=== PATIENT | female | born 1970 | race Caucasian/White ===

== ENCOUNTER 2017-06-05 00:10 | Emergency (ER) | payer MEDICAID ==
[~2017-06-05] VITALS: Ht 167.6 cm; Wt 84.0 kg
[2017-06-05 00:11] VITALS: BP 130/92
== END 2017-06-05 00:23 | disposition left against medical advice (07) ==
LOC: ED 00:17
DX: H57.10 Ocular pain, unspecified eye (principal); Z53.21 Procedure and treatment not carried out due to patient leaving prior to being seen by health care provider

== ENCOUNTER 2018-12-29 06:51 | Inpatient (IN) | payer MEDICAID, OTHER ==
[2018-12-29] VITALS (14 sets, daily range): BP systolic 105–130; BP diastolic 67–88
[~2018-12-29] VITALS: Ht 167.6 cm; Wt 80.2 kg
[2018-12-29] MEDS ORDERED: SODIUM CHLORIDE FLUSH 10ML SYR IVF ONE (07:00)
--- NOTE | 2018-12-29 07:11 | NUR ---
pt bib remsa in custody, pt has had intermittent vaginal bleeding (one episode lasting 28 days). Pt's H&H was 4 & 16.4 on 12/27.
[2018-12-29 07:34] LABS: INTERNATIONAL NORMALIZED RATIO 0.95 (0.93-1.1); PROTHROMBIN TIME 10.1 Seconds (9.6-11.5)
[2018-12-29 07:36] LABS: ALANINE AMINOTRANSFERASE 11 U/L (12-78); ALBUMIN 3.4 g/dL (3.4-5.0); ANION GAP 6 mmol/L (5-15); CALCIUM 8.5 mg/dL (8.5-10.1); CHLORIDE 107 mmol/L (98-107); CREATININE 0.81 mg/dL (0.55-1.02)
[2018-12-29 07:38] LABS: ALKALINE PHOSPHATASE 107 U/L (45-117); BILIRUBIN,TOTAL 0.3 mg/dL (0.2-1.0); TOTAL PROTEIN 7.3 g/dL (6.4-8.2)
[2018-12-29 07:43] LABS: MEAN CORPUSCULAR HEMOGLOBIN 15.5 pg (27.0-34.8); MEAN CORPUSCULAR VOLUME 54.3 fL (80-100); MEAN PLATELET VOLUME 8.1 fL (7.4-10.4); PLATELET COUNT 282 x10^3/uL (130-400); RED BLOOD COUNT 2.61 x10^6/uL (3.82-5.3); RED CELL DISTRIBUTION WIDTH 21.5 % (9.6-15.2)
[2018-12-29 07:44] LABS: MEAN CORPUSCULAR HGB CONC 28.6 g/dL (32.4-35.8)
--- NOTE | 2018-12-29 07:55 | NUR ---
PT RETURNED FROM US IN NAD, AWAITING TYPE & SCREEN & BLOOD FROM BLOOD BANK
[2018-12-29 08:00] LABS: BASOPHILS # (AUTO) 0.01 x10^3/uL (0-0.1); BASOPHILS % (AUTO) 0 % (0-1); EOSINOPHILS # (AUTO) 0.02 x10^3/uL (0-0.4); EOSINOPHILS % (AUTO) 0 % (1-7); LYMPHOCYTES # (AUTO) 1.03 x10^3/uL (1-3.4); LYMPHOCYTES % (AUTO) 12 % (22-44); MD MORPH REVIEW ONLY; MONOCYTES # (AUTO) 0.51 x10^3/uL (0.2-0.8); MONOCYTES % (AUTO) 6 % (2-9); NEUTROPHILS % (AUTO) 81 % (42-75)
[2018-12-29 08:01] LABS: HYPOCHROMIA 2+
--- NOTE | 2018-12-29 08:04 | NUR ---
BLOOD REQUESTED FROM LAB
[2018-12-29 08:05] LABS: ANISOCYTOSIS 3+; MICROCYTOSIS 3+; POLYCHROMASIA 1+
[2018-12-29 08:06] LABS: <PLATELET ESTIMATE> ADEQUATE; <PLT MORPHOLOGY> NORMAL PLT MORPH; OVALOCYTES 1+
--- NOTE | 2018-12-29 09:28 | NUR ---
transfusion completed w/o complication. awaiting US read for admit order. wctm
[2018-12-29] MEDS: NICOTINE 14MG/24 HR PATCH.TD24 TD SCH (10:30)
[2018-12-29 11:02] LABS: MEAN CORPUSCULAR HEMOGLOBIN 17.2 pg (27.0-34.8); MEAN CORPUSCULAR VOLUME 58.3 fL (80-100); MEAN PLATELET VOLUME 7.9 fL (7.4-10.4); NEUTROPHILS % (AUTO) 80 % (42-75); PLATELET COUNT 244 x10^3/uL (130-400); RED BLOOD COUNT 2.71 x10^6/uL (3.82-5.3); RED CELL DISTRIBUTION WIDTH 27.6 % (9.6-15.2)
[2018-12-29 11:05] LABS: MEAN CORPUSCULAR HGB CONC 29.6 g/dL (32.4-35.8)
--- NOTE | 2018-12-29 11:05 | NUR ---
REPORT CALLED TO SHYAM WALLACE ON TELE, PT TO BE TRANSPORTED VIA STRETCHER BY TECH ACCOMPANIED BY OFFICER TO ADMIT BED UPON ROOM READINESS.
--- NOTE | 2018-12-29 11:38 | NUR ---
PT TO BE TRANSPORTED VIA STRETCHER BY TECH TO ADMIT BED AT THIS TIME.
[2018-12-29 11:40] LABS: MD MORPH REVIEW ONLY
[2018-12-29 11:41] LABS: BASOPHILS # (AUTO) 0.01 x10^3/uL (0-0.1); BASOPHILS % (AUTO) 0 % (0-1); EOSINOPHILS # (AUTO) 0.07 x10^3/uL (0-0.4); EOSINOPHILS % (AUTO) 1 % (1-7); LYMPHOCYTES # (AUTO) 0.95 x10^3/uL (1-3.4); LYMPHOCYTES % (AUTO) 13 % (22-44); MONOCYTES # (AUTO) 0.49 x10^3/uL (0.2-0.8); MONOCYTES % (AUTO) 7 % (2-9); NEUTROPHILS # (AUTO) 6.01 x10^3/uL (1.8-6.8)
[2018-12-29 11:42] LABS: HYPOCHROMIA 2+; MICROCYTOSIS 3+; OVALOCYTES 1+; POLYCHROMASIA 1+
[2018-12-29 11:43] LABS: <PLATELET ESTIMATE> ADEQUATE; <PLT MORPHOLOGY> NORMAL PLT MORPH; ANISOCYTOSIS 3+
[2018-12-29] MEDS: SODIUM CHLORIDE 0.9% 1,000 ML IV SCH ×2 (12:28→22:06)
[2018-12-29] MEDS ORDERED: CITA40TA5 PO (12:30)
[2018-12-29] MEDS ORDERED: PARO10TA56 PO (12:30)
[2018-12-29] MEDS ORDERED: TRAZ50TA66 PO (12:30)
[2018-12-29] MEDS: ACETAMINOPHEN 325 MG TABLET PO PRN (16:44)
[2018-12-29 18:47] LABS: MEAN CORPUSCULAR HEMOGLOBIN 20.4 pg (27.0-34.8); MEAN CORPUSCULAR HGB CONC 31.1 g/dL (32.4-35.8); MEAN CORPUSCULAR VOLUME 65.8 fL (80-100); MEAN PLATELET VOLUME 8.2 fL (7.4-10.4); PLATELET COUNT 234 x10^3/uL (130-400); RED BLOOD COUNT 3.45 x10^6/uL (3.82-5.3); RED CELL DISTRIBUTION WIDTH 33.8 % (9.6-15.2)
[2018-12-29 19:58] LABS: MD NO
[2018-12-29] MEDS ORDERED: TRAZODONE 100MG TABLET PO SCH (21:00)
[2018-12-29] MEDS: FAMOTIDINE 20 MG TABLET PO SCH (22:05)
[2018-12-30] VITALS (9 sets, daily range): BP systolic 109–128; BP diastolic 73–83
[2018-12-30] MEDS: ACETAMINOPHEN 325 MG TABLET PO PRN (05:37)
[2018-12-30 06:01] LABS: MEAN CORPUSCULAR HEMOGLOBIN 22.1 pg (27.0-34.8); MEAN CORPUSCULAR HGB CONC 31.7 g/dL (32.4-35.8); MEAN CORPUSCULAR VOLUME 69.9 fL (80-100); PLATELET COUNT 222 x10^3/uL (130-400); RED BLOOD COUNT 3.88 x10^6/uL (3.82-5.3); RED CELL DISTRIBUTION WIDTH 34.2 % (9.6-15.2)
[2018-12-30 06:03] LABS: ALANINE AMINOTRANSFERASE 13 U/L (12-78); ANION GAP 6 mmol/L (5-15); CALCIUM 8.2 mg/dL (8.5-10.1); CHLORIDE 112 mmol/L (98-107)
[2018-12-30 06:14] LABS: ALKALINE PHOSPHATASE 64 U/L (45-117); CREATININE 0.72 mg/dL (0.55-1.02); TOTAL PROTEIN 6.5 g/dL (6.4-8.2)
[2018-12-30 06:42] LABS: BASOPHILS # (AUTO) 0.01 x10^3/uL (0-0.1); BASOPHILS % (AUTO) 0 % (0-1); EOSINOPHILS # (AUTO) 0.11 x10^3/uL (0-0.4); EOSINOPHILS % (AUTO) 1 % (1-7); LYMPHOCYTES # (AUTO) 0.73 x10^3/uL (1-3.4); LYMPHOCYTES % (AUTO) 8 % (22-44); MD SCAN; MONOCYTES # (AUTO) 0.46 x10^3/uL (0.2-0.8); MONOCYTES % (AUTO) 5 % (2-9); NEUTROPHILS # (AUTO) 7.38 x10^3/uL (1.8-6.8); NEUTROPHILS % (AUTO) 85 % (42-75)
[2018-12-30] MEDS: FAMOTIDINE 20 MG TABLET PO SCH (09:00)
[2018-12-30] MEDS: NICOTINE 14MG/24 HR PATCH.TD24 TD SCH (10:30)
[2018-12-30 10:46] LABS: MEAN CORPUSCULAR HEMOGLOBIN 21.9 pg (27.0-34.8); MEAN CORPUSCULAR HGB CONC 31.3 g/dL (32.4-35.8); MEAN CORPUSCULAR VOLUME 70.1 fL (80-100); MEAN PLATELET VOLUME 9.5 fL (7.4-10.4); PLATELET COUNT 284 x10^3/uL (130-400); RED BLOOD COUNT 4.05 x10^6/uL (3.82-5.3); RED CELL DISTRIBUTION WIDTH 34.1 % (9.6-15.2)
[2018-12-30 11:13] LABS: BASOPHILS % (AUTO) 0 % (0-1); EOSINOPHILS # (AUTO) 0.07 x10^3/uL (0-0.4); EOSINOPHILS % (AUTO) 1 % (1-7); LYMPHOCYTES # (AUTO) 0.89 x10^3/uL (1-3.4); LYMPHOCYTES % (AUTO) 9 % (22-44); MD SCAN; MONOCYTES # (AUTO) 0.48 x10^3/uL (0.2-0.8); MONOCYTES % (AUTO) 5 % (2-9); NEUTROPHILS # (AUTO) 8.43 x10^3/uL (1.8-6.8); NEUTROPHILS % (AUTO) 86 % (42-75)
== END 2018-12-30 16:01 | disposition home or self-care (01) | DRG 760 ==
LOC: ED 07:14 → EDIP 09:39 → 4WST 11:56
PROVIDERS: ADMIT Internal Medicine; ATTEND Internal Medicine
PROC: 30233N1 Transfusion of Nonautologous Red Blood Cells into Peripheral Vein, Percutaneous Approach (ICD-10-PCS; principal; 2018-12-29)
DX: N93.8 Other specified abnormal uterine and vaginal bleeding (principal); D62 Acute posthemorrhagic anemia; D50.0 Iron deficiency anemia secondary to blood loss (chronic); E87.5 Hyperkalemia; F17.200 Nicotine dependence, unspecified, uncomplicated; F32.9 Major depressive disorder, single episode, unspecified; F41.9 Anxiety disorder, unspecified; N83.292 Other ovarian cyst, left side; N84.0 Polyp of corpus uteri; N85.2 Hypertrophy of uterus; N80.0 Endometriosis of uterus; E03.9 Hypothyroidism, unspecified; Z80.3 Family history of malignant neoplasm of breast; Z82.49 Family history of ischemic heart disease and other diseases of the circulatory system
CPT/HCPCS: 36415; 36430; 76830; 80053; 82607; 82728; 83540; 83550; 84443; 85025; 85610; 85730; 86850; 86900; 86923; 93005; 99285; G0378; J7030; P9016

== ENCOUNTER 2019-02-12 07:46 | Inpatient (IN) | payer OTHER ==
[~2019-02-12] VITALS: Ht 167.6 cm; Wt 86.0 kg
[2019-02-12] VITALS (9 sets, daily range): BP systolic 102–111; BP diastolic 55–72
[~2019-02-12 07:46] MED LIST: CITA40TA5 PO; PARO10TA56 PO; TRAZ50TA66 PO
--- NOTE | 2019-02-12 07:59 | NUR ---
48 Y/O FEMALE PRESENTS TO ER WITH C/O BLEEDING AND SYNCOPE "I'VE BEEN BLEEDING FROM MY MENSTRUAL CYCLE FOR TWO WEEKS. I WROTE IT ALL DOWN, BUT I DON'T HAVE THE INFORMATION. LAST YEAR I HAVE HAD PERIODS THAT LAST LONGER THAN TWOWEEKS. 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 I PASSED OUT THIS MORNING BEFORE BREAKFAST. I WAS KNOCKED OUT." PT PLACED ON CONT PULSE OX,NIBP, SLOT MACHINE DEPARTMENT FLOORPERSON. NO C/O N/V/D, CP, SOB.
[2019-02-12] MEDS ORDERED: SODIUM CHLORIDE FLUSH 10ML SYR IVF ONE (08:30)
[2019-02-12 08:48] LABS: MEAN CORPUSCULAR HEMOGLOBIN 25.7 pg (27.0-34.8); MEAN CORPUSCULAR HGB CONC 31.6 g/dL (32.4-35.8); MEAN CORPUSCULAR VOLUME 81.4 fL (80-100); MEAN PLATELET VOLUME 8.6 fL (7.4-10.4); PLATELET COUNT 305 x10^3/uL (130-400); RED BLOOD COUNT 2.65 x10^6/uL (3.82-5.3)
[2019-02-12 08:50] LABS: ALBUMIN 3.1 g/dL (3.4-5.0); ANION GAP 4 mmol/L (5-15); CALCIUM 8.4 mg/dL (8.5-10.1); CHLORIDE 110 mmol/L (98-107)
[2019-02-12 08:58] LABS: ALANINE AMINOTRANSFERASE 15 U/L (12-78); ALKALINE PHOSPHATASE 54 U/L (45-117); BILIRUBIN,TOTAL 0.3 mg/dL (0.2-1.0); CREATININE 0.78 mg/dL (0.55-1.02); TOTAL PROTEIN 6.6 g/dL (6.4-8.2)
[2019-02-12 09:07] LABS: PROTHROMBIN TIME 10.5 Seconds (9.6-11.5)
[2019-02-12 09:20] LABS: ANISOCYTOSIS 2+; BASOPHILS # (AUTO) 0.01 x10^3/uL (0-0.1); BASOPHILS % (AUTO) 0 % (0-1); EOSINOPHILS # (AUTO) 0.12 x10^3/uL (0-0.4); EOSINOPHILS % (AUTO) 3 % (1-7); HYPOCHROMIA 1+; LYMPHOCYTES % (AUTO) 20 % (22-44); MD MORPH REVIEW ONLY; MICROCYTOSIS 1+; MONOCYTES # (AUTO) 0.28 x10^3/uL (0.2-0.8); MONOCYTES % (AUTO) 6 % (2-9); NEUTROPHILS # (AUTO) 3.52 x10^3/uL (1.8-6.8); NEUTROPHILS % (AUTO) 71 % (42-75); POLYCHROMASIA 1+
--- NOTE | 2019-02-12 09:20 | NUR ---
LATE ENTRY FOR 0900 PT AMBULATORY WITH LE TO BATHROOM.
[2019-02-12 09:21] LABS: <PLATELET ESTIMATE> ADEQUATE; <PLT MORPHOLOGY> NORMAL PLT MORPH; OVALOCYTES 1+
[2019-02-12] MEDS ORDERED: SODIUM CHLORIDE 0.9% 1,000 ML IV ONE (10:04)
--- NOTE | 2019-02-12 10:20 | NUR ---
PT RESTING ON GURCRYSTAL FALLS. NO ACUTE DISTRESS NOTED. VSS. LE BEDSIDE.
[2019-02-12] MEDS ORDERED: SODIUM CHLORIDE FLUSH 10ML SYR IVF PRN (10:30)
--- NOTE | 2019-02-12 10:53 | NUR ---
PT TOLERATING TRANSFUSION WITH NO COMPLICATIONS. NO ACUTE DISTRESS NOTED. LE BEDSIDE.NO NEEDS REQUESTED AT THIS TIME.
--- NOTE | 2019-02-12 11:01 | NUR ---
REPORT TO [facility] MESSER. ALL QUESTIONS ANSWERED.
--- NOTE | 2019-02-12 11:24 | NUR ---
PT TRANSFERRED TO FLOOR. PT LEFT WITH ALL PERSONAL BELONGINGS.
[2019-02-12] MEDS ORDERED: MIDAZOLAM 1 MG/ML, 2ML ONE (16:07)
[2019-02-12] MEDS ORDERED: FENTANYL PF 100 MCG/2ML ONE (16:07)
[2019-02-12] MEDS ORDERED: MISOPROSTOL 200 MCG TABLET ONE (16:19)
[2019-02-12] MEDS ORDERED: METHYLERGONOVINE 0.2 MG/ML IM ONE (16:20)
[2019-02-12] MEDS ORDERED: SILVER NITRATE STICK TP ONE (16:20)
[2019-02-12] MEDS ORDERED: DOXYCYCLINE 100 MG ONE (16:20)
[2019-02-12] MEDS ORDERED: OXYTOCIN 10 UNITS/ML, 1ML ONE (16:20)
[2019-02-12] MEDS ORDERED: ONDANSETRON 2MG/ML, 2ML IV PRN (16:30)
[2019-02-12] MEDS ORDERED: PROMETHAZINE 25 MG/ML, 1ML IV PRN (16:30)
[2019-02-12] MEDS ORDERED: LABETALOL 5MG/ML, 20ML IV PRN (16:30)
[2019-02-12] MEDS ORDERED: FENTANYL PF 100 MCG/2ML IV PRN (16:30)
[2019-02-12] MEDS ORDERED: ACETAMINOPHEN 325 MG TABLET PO PRN (16:30)
[2019-02-12] MEDS ORDERED: hydrALAzine 20 MG/ML, 1ML IV PRN (16:30)
[2019-02-12] MEDS ORDERED: OXYcodone 5 MG/5 ML ORAL.SOL UDC PO PRN ×2 (16:30→19:30)
[2019-02-12] MEDS ORDERED: HYDROmorphone 2 MG/ML, 1ML IVPush PRN (16:30)
[2019-02-12] MEDS ORDERED: MEPERIDINE/PF 25MG/0.5ML IVPush PRN (16:30)
[2019-02-12] MEDS ORDERED: MORPHINE SULFATE 4 MG/ML, 1ML IVPush PRN (16:30)
[2019-02-12] MEDS ORDERED: BUPIVACAINE/PF 0.25% ONE (17:04)
[2019-02-12] MEDS ORDERED: EPINEPHRINE 1 MG/ML, 1ML ONE (17:04)
[2019-02-12] MEDS ORDERED: CEFAZOLIN 1,000 MG ONE ×2 (17:16→17:17)
[2019-02-12] MEDS ORDERED: PROPOFOL 10 MG/ML, 20ML ONE (17:17)
[2019-02-12] MEDS ORDERED: EPHEDRINE 50 MG/ML, 1ML ONE (17:19)
[2019-02-12] MEDS ORDERED: DEXAMETHASONE 4 MG/ML, 1ML ONE (17:35)
[2019-02-12] MEDS ORDERED: ONDANSETRON 2MG/ML, 2ML ONE (17:35)
[2019-02-12 18:28] LABS: BASOPHILS % (AUTO) 2 % (0-1); EOSINOPHILS # (AUTO) 0.13 x10^3/uL (0-0.4); EOSINOPHILS % (AUTO) 2 % (1-7); LYMPHOCYTES # (AUTO) 1.18 x10^3/uL (1-3.4); LYMPHOCYTES % (AUTO) 23 % (22-44); MD MORPH REVIEW ONLY; MEAN CORPUSCULAR HGB CONC 33.1 g/dL (32.4-35.8); MEAN CORPUSCULAR VOLUME 81.7 fL (80-100); MEAN PLATELET VOLUME 8.1 fL (7.4-10.4); MONOCYTES # (AUTO) 0.29 x10^3/uL (0.2-0.8); MONOCYTES % (AUTO) 6 % (2-9); NEUTROPHILS # (AUTO) 3.55 x10^3/uL (1.8-6.8); NEUTROPHILS % (AUTO) 68 % (42-75); PLATELET COUNT 291 x10^3/uL (130-400); RED BLOOD COUNT 2.95 x10^6/uL (3.82-5.3); RED CELL DISTRIBUTION WIDTH 30.8 % (9.6-15.2)
[2019-02-12 18:44] LABS: ANISOCYTOSIS 2+
[2019-02-12 18:45] LABS: POLYCHROMASIA 1+
[2019-02-12 18:46] LABS: MICROCYTOSIS 1+; OVALOCYTES 1+
[2019-02-12 18:54] LABS: TEAR DROPS 1+
[2019-02-12 18:55] LABS: <PLATELET ESTIMATE> ADEQUATE; LARGE PLATELETS 1+
[2019-02-12] MEDS ORDERED: morphine SULFATE 10 MG/ML, 1ML IV PRN (19:30)
[2019-02-12] MEDS ORDERED: IBUPROFEN 600 MG TABLET PO PRN (19:30)
== END 2019-02-12 22:13 | DRG 744 ==
LOC: ED 08:11 → EDIP 10:04 → 4NOR 11:25
PROVIDERS: ADMIT Obstetrics & Gynecology; ATTEND Obstetrics & Gynecology
PROC: 30233N1 Transfusion of Nonautologous Red Blood Cells into Peripheral Vein, Percutaneous Approach (ICD-10-PCS; 2019-02-12)
PROC: 0UDB7ZZ Extraction of Endometrium, Via Natural or Artificial Opening (ICD-10-PCS; principal; 2019-02-12 17:00)
DX: D25.9 Leiomyoma of uterus, unspecified (principal); D62 Acute posthemorrhagic anemia; N92.1 Excessive and frequent menstruation with irregular cycle; R55 Syncope and collapse; F32.9 Major depressive disorder, single episode, unspecified; F41.1 Generalized anxiety disorder; N93.8 Other specified abnormal uterine and vaginal bleeding; F10.10 Alcohol abuse, uncomplicated; N85.2 Hypertrophy of uterus; Z87.891 Personal history of nicotine dependence
CPT/HCPCS: 36415; 80053; 84703; 85025; 85610; 85730; 86850; 86900; 86923; 88305; 99291; G0378; J0171; J0690; J1100; J2250; J2405; J2704; J3010; J3490; J2210; J2590; P9016